=== PATIENT | female | born 1930 | race Caucasian/White ===

== ENCOUNTER 2017-11-21 18:08 | Inpatient (IN) | payer MEDICARE ==
[~2017-11-21] VITALS: Ht 175.3 cm; Wt 55.5 kg
--- NOTE | 2017-11-21 18:20 | NUR ---
HEP LOCK - STARTED - BLOOD CULTURE AND BASIC LABS DRAWN - SENT TO LABS
[2017-11-21] MEDS ORDERED: IV NS 0.9% 1,000 ML BAG IV ONE (18:30)
[2017-11-21] MEDS ORDERED: ONDANSETRON HCL/PF 4 MG/2 ML VIAL IVP ONE (18:30)
[2017-11-21] MEDS ORDERED: ONDANSETRON HCL/PF 4 MG/2 ML VIAL ONE ×2 (18:35→21:51)
[2017-11-21 18:42] LABS: HEMATOCRIT 42 % (33-45); MEAN CORPUSCULAR HEMOGLOBIN 32 PG (26.0-33.0); MEAN CORPUSCULAR HGB CONC 33 g/dl (31.0-36.0); MEAN CORPUSCULAR VOLUME 95 fL (82-100); PLATELET COUNT (AUTO) 70 /CMM (150-450); RDW COEFFICIENT OF VARIATION 14.7 (11.5-15.0); RED BLOOD CELL COUNT(AUTO) 4.42 MIL/uL (4.0-5.2); WHITE BLOOD COUNT (AUTO) 5.3 K/uL (4.3-11.0)
[2017-11-21 18:48] LABS: CALCIUM, SERUM 9.6 mg/dL (8.5-10.1); CARBON DIOXIDE 26 mmol/L (21-32); CHLORIDE 103 mmol/L (98-107); CREATININE 0.7 mg/dL (0.6-1.3); GLUCOSE 147 mg/dL (74-106); POTASSIUM 4.4 mmol/L (3.5-5.1); SODIUM SERUM 139 mmol/L (136-145); UREA NITROGEN, BLOOD 13 mg/dL (7-18)
[2017-11-21 18:55] LABS: TROPONIN I 0.018 ng/mL (0.00-0.056)
[2017-11-21 19:02] LABS: ALANINE AMINOTRANSFERASE 25 U/L (12-78); ALBUMIN 4.4 g/dL (3.4-5.0); ALKALINE PHOSPHATASE 189 U/L (46-116); ASPARTATE AMINOTRANSFERASE 33 U/L (15-37); BILIRUBIN,DIRECT 0.4 mg/dL (0.0-0.2); BILIRUBIN,TOTAL 1.3 mg/dL (0.2-1.0); TOTAL PROTEIN, SERUM 7.9 g/dL (6.4-8.2)
[2017-11-21] MEDS ORDERED: WARF2TAB57 PO (19:03)
[2017-11-21] MEDS ORDERED: WARF4TAB41 PO (19:03)
[2017-11-21] MEDS ORDERED: PITA1TAB PO (19:03)
[2017-11-21] MEDS ORDERED: MONT10TA22 PO (19:03)
[2017-11-21] MEDS ORDERED: METO-358 PO (19:03)
[2017-11-21] MEDS ORDERED: LEVO50TA8 PO (19:03)
[2017-11-21 19:53] LABS: NEUTROPHILS % (MANUAL) 55 (42-76)
--- NOTE | 2017-11-21 19:53 | NUR ---
CALLED DR. CABAN'S OFFICE, ANSWERING SERVICE SAID TO CALL [facility].
[2017-11-21 19:54] LABS: LYMPHOCYTES % (MANUAL) 15 % (16-48); MONOCYTES % (MANUAL) 30 % (0-11.0)
--- NOTE | 2017-11-21 19:54 | NUR ---
JERMAIN RAMOS, YESSENIA SCHULZ NP DOMESTIC MAID.
[2017-11-21] MEDS ORDERED: OSELTAMIVIR PHOSPHATE 75 MG CAPSULE PO ONE (20:00)
--- NOTE | 2017-11-21 20:00 | NUR ---
CALLED NURSING SUP. FOR TELE BED
[2017-11-21] MEDS ORDERED: OSELTAMIVIR PHOSPHATE 75 MG CAPSULE ONE (20:04)
--- NOTE | 2017-11-21 20:06 | NUR ---
[facility] hospitalist - called - Eloisa Ureña ACNP - accepted
--- NOTE | 2017-11-21 20:10 | NUR ---
TELE 112-1
[2017-11-21 20:11] LABS: INR 3.56 (0.87-1.13); PROTHROMBIN TIME 37.5 SECS (9.5-12.7)
[2017-11-21 20:19] LABS: APPEARANCE,URINE Slightly Cloudy (CLEAR); BILIRUBIN,URINE Negative (NEGATIVE); BLOOD, URINE Large Ery/uL (NEGATIVE); COLOR,URINE Yellow (YELLOW); KETONES,URINE 15 (NEGATIVE); LEUKOCYTE ESTERASE ,URINE Negative (NEGATIVE); NITRITE, URINE Positive (NEGATIVE); PH,URINE 5.5 (5.0-8.0); PROTEIN,URINE 100 mg/dl (NEGATIVE); UGLUCOSE Negative (NEGATIVE); UROBILINOGEN,URINE 0.2 EU/dL (0.2)
--- NOTE | 2017-11-21 20:25 | NUR ---
REPORT GIVEN TO IAN. PT AWAITING TRANSFER TO FLOOR.
[2017-11-21 20:40] LABS: RBC,URINE 21-50 /HPF (0-2)
[2017-11-21 20:41] LABS: BACTERIA,URINE 3+ /HPF (None Seen); SQUAMOUS EPITHELIAL CELL,UR Moderate /HPF (None Seen)
[2017-11-21 20:45] VITALS: BP 158/94
[2017-11-21] MEDS ORDERED: ONDANSETRON HCL/PF 4 MG/2 ML VIAL IVP PRN (21:30)
[2017-11-21] MEDS ORDERED: ZOLPIDEM TARTRATE 5 MG TABLET PO PRN (21:30)
[2017-11-21] MEDS ORDERED: HYDROCODONE/APAP 5/325MG 1 EACH TABLET PO PRN (21:30)
[2017-11-21] MEDS ORDERED: Z GUARD REMEDY 2 OZ OINT TP PRN (21:30)
[2017-11-21] MEDS ORDERED: ACETAMINOPHEN 325 MG TABLET PO PRN (21:30)
[2017-11-21] MEDS ORDERED: MAGNESIUM HYDROXIDE 30 ML UDC PO PRN (21:30)
[2017-11-21] MEDS ORDERED: CALCIUM CARBONATE 500 MG TAB.CHEW PO PRN (21:30)
[2017-11-21] MEDS ORDERED: LEVOFLOXACIN 500 MG /D5W 100ML 100 ML IV ONE ×2 (21:49→22:14)
[2017-11-21] MEDS ORDERED: HYDROCODONE/APAP 5/325MG 1 EACH TABLET ONE (21:50)
[2017-11-21] MEDS ORDERED: CALCIUM CARBONATE 500 MG TAB.CHEW ONE (21:51)
[2017-11-21] MEDS ORDERED: PANTOPRAZOLE 40 MG TABLET.DR PO ONE (21:53)
--- NOTE | 2017-11-21 22:00 | NUR ---
RN NOTES 20-45 PM- ADMITTED AN 87 YEARS OLD FEMALE PATIENT FROM ER UNDER YESSENIA DIRECTOR OF PERIOPERATIVE SERVICES DIAGNOSED WITH SEPSIS WITH HISTORY OD A-FIB , VALVE REPLACEMENT X2 , RENAL FAILURE, APPENDECTOMY ANS OSTEOARTHRITIS. ALLERGIC TO PROCHLORPERAZINE, CLINDAMYCIN, TRIMETHOPRIM. SULFAMETHIAZOLE, NITROFURANTOIN, AOX4 ABLE TO MAKE KNOWN NEEDS. AMBULATE WITH ASSIST PER PT SHE FEELS DIZZY AT THIS TIME. TELE MONITOR REVEALS A-FIB HR 117. IV SITE ON LFA G 20 INTACT AND PATENT ANS STARTED NS @ 60 CC/HR INTACT AND PATENT. SKIN ASSESSMENT DONE PHOTO TAKEN. PLAN OF CARE EXPLAINED. CALL LIGHT INSTRUCTED AND KEPT WITHIN EASY REACH. KEPT PT CLEAN AND DRY. WILL CONTINUE TO MONITOR.
[2017-11-21] MEDS: IV NS 0.9% 1,000 ML IV PRN (22:08)
[2017-11-21] MEDS: PANTOPRAZOLE 40 MG TABLET.DR PO SCH (22:09)
[2017-11-21] MEDS: LEVOFLOXACIN 500 MG /D5W 100ML 500 MG in PREMIX 1 EA IV SCH (22:15)
--- NOTE | 2017-11-21 22:15 | NUR ---
RN NOTES PT IS COMPLAINING OF PAIN ON HER SHOULDER, STILL FEEL NAUSEOUS AND HURT BURN. CALL YESSENIA MANUFACTURING TEAM LEADER WITH PRN MEDICINE ORDER GIVEN ORDERED. ALL DUE MEDICINE GIVEN ORDER. ALL NEEDS ATTENDED. CALL LIGHT KEPT WITHIN EASY REACH. WILL CONTINUE TO MONITOR.
--- NOTE | 2017-11-21 22:30 | NUR ---
RN NOTES PT STATED THAT SHE FELL 2DAYS AGO AT HOME THAT'S SHE GOT A HUGE HEMATOMA ON HER RIGHT FACE. NOTED PT LOSS HAIR ON TOP OF THE HEAD PER PT SHE HAD A SKIN CANCER AND SHE HAD A SKIN GRAFT ON HER HEAD.
[2017-11-22] VITALS: BP_SYST 135; BP_DIAS 74; BP_DIAS 77
[2017-11-22 04:00] VITALS: BP 126/60
--- NOTE | 2017-11-22 07:06 | NUR ---
RN NOTES PT ASLEEP WELL ON BED. BREATHING EVEN AND UNLABORED. DENIES PAIN. AFTER PAIN MEDICINE GIVEN LAST NIGHT. AFEBRILE. PT STILL COUGHING, NO COMPLAIN OF NAUSEOUSNESS AT THIS TIME NO SHOULDER PAIN , ASSISTED TO THE BATHROOM FOR B/B WITH PERIODS OF INCONTINENCE. ALL NEEDS ATTENDED. KEPT PT CLEAN AND DRY. WILL ENDORSED CONTINUITY OF CARE TO AM NURSE.
--- NOTE | 2017-11-22 07:30 | NUR ---
RADHA RN INITIAL NOTES PATIENT RESTING IN BED, AOX3, NO SIGNS OF DISTRESS, ON 2L NC SATURATING WELL, ON TELE MONITORING 77HR, ABLE TO AMBULATE WITH ASSISTANCE, IV R FA CLEAN AND PATENT, INFUSING 20 CC/HR NS, COUGH NOTED SPUTUM IN THROAT. BED IN LOW AND LOCKED POSITION CALL LIGHT WITHIN REACH, WILL CONTINUE TO MONITOR.
[2017-11-22 08:00] VITALS: BP 153/71
[2017-11-22 08:07] LABS: CHOLESTEROL 94 mg/dL (<200); HDL CHOLESTEROL 39 mg/dL (40-60); LDL 46 mg/dL (0-99); TRIGLYCERIDES 81 mg/dL (30-150)
[2017-11-22 08:09] LABS: INR 2.94 (0.87-1.13); PROTHROMBIN TIME 30.9 SECS (9.5-12.7)
[2017-11-22 08:14] LABS: CALCIUM, SERUM 8.8 mg/dL (8.5-10.1); CARBON DIOXIDE 26 mmol/L (21-32); CHLORIDE 107 mmol/L (98-107); CREATININE 0.7 mg/dL (0.6-1.3); GLUCOSE 94 mg/dL (74-106); MAGNESIUM 1.6 mg/dL (1.8-2.4); PHOSPHORUS 3.5 mg/dL (2.5-4.9); POTASSIUM 4.2 mmol/L (3.5-5.1); SODIUM SERUM 140 mmol/L (136-145); UREA NITROGEN, BLOOD 10 mg/dL (7-18)
[2017-11-22 08:18] LABS: BASOPHILS % (AUTO) 0.5 % (0.0-2.0); EOSINOPHILS % (AUTO) 0.3 % (0.0-6.0); HEMATOCRIT 35 % (33-45); HEMOGLOBIN 11.8 g/dL (11.5-14.8); LYMPHOCYTES # (AUTO) 0.6 /CMM (0.8-4.8); LYMPHOCYTES % (AUTO) 21.4 % (20.0-44.0); MEAN CORPUSCULAR HEMOGLOBIN 33 PG (26.0-33.0); MEAN CORPUSCULAR HGB CONC 34 g/dl (31.0-36.0); MEAN CORPUSCULAR VOLUME 98 fL (82-100); MONOCYTES # (AUTO) 0.9 /CMM (0.1-1.30); MONOCYTES % (AUTO) 30.7 % (2.0-12.0); NEUTROPHILS # (AUTO) 1.4 /CMM (1.8-8.9); NEUTROPHILS % (AUTO) 47.1 % (43.0-81.0); PLATELET COUNT (AUTO) 54 /CMM (150-450); RED BLOOD CELL COUNT(AUTO) 3.59 MIL/uL (4.0-5.2)
[2017-11-22] MEDS: PANTOPRAZOLE 40 MG TABLET.DR PO SCH (09:02)
[2017-11-22] MEDS: LEVOTHYROXINE SODIUM 50 MCG TABLET PO SCH (09:02)
[2017-11-22] MEDS: METOPROLOL SUCCINATE 50 MG TAB.SR.24H PO SCH (09:03)
[2017-11-22] MEDS: MONTELUKAST SODIUM (10MG) 10 MG TABLET PO SCH (09:03)
[2017-11-22 10:13] LABS: BAND % (MANUAL) 2 % (0.0-5.0); LYMPHOCYTES % (MANUAL) 33 % (16-48); MONOCYTES % (MANUAL) 17 % (0-11.0); NEUTROPHILS % (MANUAL) 48 (42-76)
[2017-11-22 12:00] VITALS: BP 146/70
[2017-11-22] MEDS: Magnesium 1GM/D5W 100ML PREMIX 100 ML IV SCH ×2 (12:34→14:07)
--- NOTE | 2017-11-22 12:40 | NUR ---
RADHA RN NOTES PATIENT HAS FEVER OF 99.9 , TYLENOL GIVEN, PATIENT STATED SHE IS NOT FEELING GOOD, MD CALLED TWICE AND STATED HE WILL SEE THE PATIENT SOON, PATIENT CLEANED AND MADE COMFORTABLE, WILL CONTINUE TO MONITOR.
[2017-11-22] MEDS ORDERED: LEVALBUTEROL HCL NEB 1.25 MG/0.5 ML VIAL.NEB IH SCH (13:30)
[2017-11-22] MEDS ORDERED: LEVALBUTEROL HCL NEB 1.25 MG/0.5 ML VIAL.NEB ONE (13:42)
[2017-11-22] MEDS: methylPREDNISolone SOD SUCC 40 MG/ML VIAL IV SCH ×2 (14:13→17:00)
--- NOTE | 2017-11-22 14:33 | NUR ---
EXTENSION EDUCATOR NOTES PATIENT TEMPERATURE RECHECKED 98.6 AT THIS TIME, WILL CONTINUE TO MONITOR.
[2017-11-22] MEDS ORDERED: LEVALBUTEROL HCL NEB 1.25 MG/0.5 ML VIAL.NEB NEB SCH (15:30)
[2017-11-22] MEDS: IPRATROPIUM NEB FS 0.5 MG/2.5 ML AMPUL.NEB NEB SCH ×2 (15:30→19:39)
[2017-11-22 16:00] VITALS: BP 112/61
[2017-11-22] MEDS ORDERED: WARFARIN SODIUM 2 MG TABLET PO SCH (17:00)
[2017-11-22] MEDS: IV NS 0.9% 1,000 ML IV PRN (19:10)
[2017-11-22] MEDS ORDERED: ALBUTEROL FS 2.5 MG/0.5 ML VIAL.NEB NEB SCH (19:30)
--- NOTE | 2017-11-22 19:30 | NUR ---
SHOT TUBE MACHINE TENDER NOTE PATIENT IS RESTING IN BED , NO SIGNS OF DISTRESS, STATED SHE IS FEELING BETTER, ALL NEEDS MET, WILL ENDORSE TO DRY CLEANER HELPER FOR CONTINUITY OF CARE.
[2017-11-22 20:00] VITALS: BP 126/56
--- NOTE | 2017-11-22 20:00 | NUR ---
RN INITIAL NOTE PATIENT IS RESTING IN BED , NO SIGNS OF DISTRESS, BED IN THE LOWEST LOCKED POSITION, CALL LIGHT WITH IN REACH. WILL CONTINUE TO MONITOR .
[2017-11-22] MEDS: LEVOFLOXACIN 500 MG /D5W 100ML 500 MG in PREMIX 1 EA IV SCH (20:49)
[2017-11-23] VITALS: BP 140/71
[2017-11-23 04:00] VITALS: BP 137/60
--- NOTE | 2017-11-23 06:21 | NUR ---
RN CLOSING NOTE PATIENT IS RESTING IN BED, NO CHANGES DURING SHIFT , NO SIGNS OF DISTRESS, BED IN THE LOWEST LOCKED POSITION, CALL LIGHT WITHIN REACH. ECHO AND EKG DONE. WILL ENDORSE TO AM RN.
--- NOTE | 2017-11-23 07:12 | NUR ---
RN INITIAL NOTES: REC'D PT ASLEEP ON BED, NOT IN ANY DISTRESS, A/O X 3, EASILY AROUSABLE, DENIES ANY PAIN/DISCOMFORT. ON NC AT 2LPM, NO SOB BUT NOTED PRODUCTIVE COUGH. HAS LFA G20, PL W/ NS X 40 CC/HR INFUSING WELL. HAS FC PATENT & INTACT DRAINING TO ADEQUATE URINE OUTPUT. PROVIDED COMFORT & SAFETY MEASURES. BED KEPT LOW & IN LOCKED POS. CALL LIGHT PLACED W/IN REACH. WILL CONTINUE TO MONITOR AND ATTEND PT NEEDS.
[2017-11-23] MEDS: ALBUTEROL HALF STRENGTH 1.25 MG/3 ML VIAL.NEB NEB SCH ×3 (07:24→15:30)
[2017-11-23] MEDS: IPRATROPIUM NEB FS 0.5 MG/2.5 ML AMPUL.NEB NEB SCH ×3 (07:24→15:30)
[2017-11-23 07:27] LABS: CALCIUM, SERUM 8.9 mg/dL (8.5-10.1); CARBON DIOXIDE 24 mmol/L (21-32); CHLORIDE 105 mmol/L (98-107); CREATININE 0.6 mg/dL (0.6-1.3); GLUCOSE 127 mg/dL (74-106); POTASSIUM 4.4 mmol/L (3.5-5.1); SODIUM SERUM 137 mmol/L (136-145); UREA NITROGEN, BLOOD 11 mg/dL (7-18)
[2017-11-23 07:38] LABS: HEMATOCRIT 33 % (33-45); HEMOGLOBIN 11.1 g/dL (11.5-14.8); MEAN CORPUSCULAR HEMOGLOBIN 33 PG (26.0-33.0); MEAN CORPUSCULAR HGB CONC 34 g/dl (31.0-36.0); MEAN CORPUSCULAR VOLUME 97 fL (82-100); PLATELET COUNT (AUTO) 54 /CMM (150-450); RDW COEFFICIENT OF VARIATION 15.3 (11.5-15.0); RED BLOOD CELL COUNT(AUTO) 3.41 MIL/uL (4.0-5.2); WHITE BLOOD COUNT (AUTO) 2.9 K/uL (4.3-11.0)
[2017-11-23 08:00] VITALS: BP_SYST 146; BP_SYST 148; BP_DIAS 68
[2017-11-23] MEDS: METOPROLOL SUCCINATE 50 MG TAB.SR.24H PO SCH (08:39)
[2017-11-23] MEDS: MONTELUKAST SODIUM (10MG) 10 MG TABLET PO SCH (08:39)
[2017-11-23] MEDS: methylPREDNISolone SOD SUCC 40 MG/ML VIAL IV SCH (08:39)
[2017-11-23] MEDS: LEVOTHYROXINE SODIUM 50 MCG TABLET PO SCH (08:40)
[2017-11-23] MEDS: PANTOPRAZOLE 40 MG TABLET.DR PO SCH (08:40)
--- NOTE | 2017-11-23 10:00 | NUR ---
RN NOTES: PT SEEN & EXAMINED Y DR. AL, DR. WALSH & CHARMAINE HOLT W/ ORDERS MADE & CARRIED OUT.
[2017-11-23 10:01] LABS: BAND % (MANUAL) 1 % (0.0-5.0); LYMPHOCYTES % (MANUAL) 37 % (16-48); MONOCYTES % (MANUAL) 8 % (0-11.0); NEUTROPHILS % (MANUAL) 54 (42-76)
[2017-11-23] MEDS ORDERED: GUAIFENESIN LA 600 MG TABLET.SA PO SCH (11:00)
[2017-11-23 12:00] VITALS: BP 135/54
--- NOTE | 2017-11-23 14:00 | NUR ---
RN NOTES: PT SEEN & EXAMINED BY DR. SOARES. PER PT, SHE WANTED TO GO HOME AMA DUE TO THE INCIDENT SHE HAD W/ DR. SOARES. JONATHON MONTANO MADE AWARE PER CN. PT SIGNED AMA FORM.
[2017-11-23] MEDS ORDERED: WARFARIN SODIUM 2 MG TABLET PO SCH (17:00)
--- NOTE | 2017-11-23 17:00 | NUR ---
CABIN FURNISHINGS INSTALLER NOTES: PT LEFT AMA. DC INSTRUCTIONS AND DOCUMENTS GIVEN TO THE PT W/ VERBALIZATION OF UNDERSTANDING. PT ABLE TO TOLERATE ROOM AIR, NO SOB. IV LINE ACCESS REMOVED, PRESSURE DRESSING APPLIED. PT REFUSED TAKING 5PM MEDICATION COUMADIN. SHE SAID SHE IS GOING TO TAKE IT AT HOME AND BESIDE SHE WILL SEE HER PCP TOMORROW. PT LEFT FACILITY IN STABLE CONDITION VIA WHEELCHAIR ACCOMPANIED BY FAMILY AND MAP COLORER. NO CONCERN IDENTIFIED AT THE TIME OF DC. TELEMONITOR BOX REMOVED.
[2017-11-23 17:47] LABS: INR 3.52 (0.87-1.13); PROTHROMBIN TIME 37.1 SECS (9.5-12.7)
[2017-11-26] MEDS ORDERED: LIVALO 1 MG PO SCH (09:00)
== END 2017-11-23 16:00 | disposition left against medical advice (07) | DRG 871 ==
LOC: ER 18:11 → TELE-TD 20:18 → TELE1 11-22 09:56
PROVIDERS: ADMIT Nurse Practitioner Acute Care; ATTEND Nurse Practitioner Acute Care
DX: A41.9 Sepsis, unspecified organism (principal); D65 Disseminated intravascular coagulation [defibrination syndrome]; J18.9 Pneumonia, unspecified organism; D68.59 Other primary thrombophilia; D68.9 Coagulation defect, unspecified; I48.91 Unspecified atrial fibrillation; E83.42 Hypomagnesemia; E86.0 Dehydration; N39.0 Urinary tract infection, site not specified; Z88.1 Allergy status to other antibiotic agents; Z79.899 Other long term (current) drug therapy; Z79.01 Long term (current) use of anticoagulants; I25.10 Atherosclerotic heart disease of native coronary artery without angina pectoris; Z88.2 Allergy status to sulfonamides; Z88.8 Allergy status to other drugs, medicaments and biological substances; Z95.2 Presence of prosthetic heart valve; B34.9 Viral infection, unspecified; E03.9 Hypothyroidism, unspecified; B96.89 Other specified bacterial agents as the cause of diseases classified elsewhere; N18.9 Chronic kidney disease, unspecified
CPT/HCPCS: 36415; 71010-TC; 80048-TC; 80061-TC; 80076-TC; 81000-TC; 83605-TC; 83735-TC; 84100-TC; 84484-TC; 85025-TC; 85385-TC; 85610-TC; 85730-TC; 87040-TC; 87081-TC; 87086-TC; 87186-TC; 87400; 93307-TC; A4216; A4606; J1956; J2405; J2920; J3475; J7030; Z7610